=== PATIENT | male | born 1950 | race Caucasian/White ===

== ENCOUNTER 2016-12-29 16:53 | Inpatient (IN) | payer MEDICARE, OTHER ==
[~2016-12-29] VITALS: Ht 167.6 cm; Wt 74.8 kg
[2016-12-29] MEDS ORDERED: LOSA25TA21 PO (17:22)
[2016-12-29] MEDS ORDERED: ATOR10TA84 PO (17:22)
[2016-12-29] MEDS ORDERED: ASPI81 PO (17:22)
[2016-12-29 18:00] LABS: BASOPHILS % (AUTO) 0.9 % (0.0-2.0); EOSINOPHILS % (AUTO) 0.8 % (1.0-6.0); HEMATOCRIT 39.2 % (41-53); HEMOGLOBIN 13.2 g/dL (13.5-17.5); LYMPHOCYTES % (AUTO) 8.1 % (22.0-44.0); MEAN CORPUSCULAR HEMOGLOBIN 30.2 pg (26.0-34.0); MEAN CORPUSCULAR HGB CONC 33.7 G/dL (31.0-37.0); MEAN CORPUSCULAR VOLUME 90 fL (80-100); MONOCYTES # (AUTO) 1.5 K/uL (0.1-1.0); MONOCYTES % (AUTO) 11.6 % (2.0-9.0); NEUTROPHILS % (AUTO) 78.6 % (40.0-70.0); PLATELET COUNT (AUTO) 456 K/uL (150-450); RED BLOOD CELL COUNT(AUTO) 4.36 MIL/uL (4.50-5.90); WHITE BLOOD COUNT (AUTO) 12.7 K/uL (4.5-11.0)
[2016-12-29 18:12] LABS: ANION GAP 12 mmol/L (8-16); CALCIUM, TOTAL 8.5 mg/dL (8.8-10.5); CARBON DIOXIDE 21 mmol/L (22-29); CHLORIDE 93 mmol/L (98-107); CREATININE 0.87 mg/dL (0.60-1.30); GLOMERULAR FILTR. RATE CALC > 60 mL/min (>60); POTASSIUM 4.1 mmol/L (3.5-5.1); SODIUM SERUM 126 mmol/L (136-145); UREA NITROGEN, BLOOD 12 mg/dL (7-18)
[2016-12-29 18:20] LABS: ALANINE AMINOTRANSFERASE 17 U/L (12-78); ALBUMIN 2.9 g/dL (3.4-5.0); ASPARTATE AMINOTRANSFERASE 15 U/L (15-37); BILIRUBIN,TOTAL 0.7 mg/dL (0.1-1.0); TOTAL PROTEIN, SERUM 7.8 g/dL (6.4-8.2)
[2016-12-29] MEDS ORDERED: BARIUM SULFATE 0.1% SUSPENSION 450 ML BOTTLE PO ONE (19:15)
[2016-12-29] MEDS ORDERED: IOVERSOL 320 MG/ML 100 ML VIAL ONE (19:30)
[2016-12-29] MEDS ORDERED: SODIUM CHLORIDE 0.9% 100 ML ONE (19:30)
[2016-12-29] MEDS ORDERED: SODIUM CHLORIDE 0.9% 1,000 ML IV ONE (20:15)
[2016-12-29 22:00] LABS: APPEARANCE,URINE CLEAR (CLEAR); GLUCOSE, URINE (UA) NEGATIVE (NEGATIVE); KETONES,URINE 40 mg/dL (NEGATIVE); LEUKOCYTE ESTERASE ,URINE NEGATIVE (NEGATIVE); OCCULT BLOOD,URINE NEGATIVE (NEGATIVE); PH,URINE 5.5 (5.0-8.0); PROTEIN,URINE NEGATIVE (NEGATIVE)
[2016-12-29 22:19] LABS: ADD UA MICROSCOPIC NO
[2016-12-29] MEDS ORDERED: POTASSIUM CHL 20 MEQ/D5-0.45NS 1,000 ML IV ONE (23:15)
[2016-12-29] MEDS ORDERED: ACETAMINOPHEN 325 MG TABLET PO PRN (23:15)
[2016-12-29] MEDS ORDERED: 0.9% SODIUM CHLORIDE 10 ML SYRINGE IVP PRN (23:15)
[2016-12-29] MEDS ORDERED: ONDANSETRON HCL 4 MG/2 ML VIAL IVP PRN (23:15)
[2016-12-29] MEDS ORDERED: PIPERACILLIN/TAZO 3.375 GM/D5W 50 ML IV ONE (23:15)
[2016-12-29 23:45] VITALS: BP 150/81
[2016-12-30] VITALS (9 sets, daily range): BP systolic 111–187; BP diastolic 60–93
[2016-12-30] MEDS ORDERED: IPRATROPIUM BROMIDE 0.5 MG/2.5 ML NEB SOLUTION NEB PRN (00:15)
[2016-12-30] MEDS ORDERED: ZOLPIDEM TARTRATE 5 MG TABLET PO PRN (00:15)
[2016-12-30] MEDS ORDERED: ALBUTEROL SULFATE 2.5 MG/0.5 ML NEB SOLUTION NEB PRN (00:15)
[2016-12-30] MEDS ORDERED: ACETAMINOPHEN 325 MG TABLET PO PRN (00:15)
[2016-12-30] MEDS ORDERED: BISACODYL 10 MG RECTAL RECTAL SUPPOSITORY PR PRN (00:15)
[2016-12-30] MEDS ORDERED: ONDANSETRON HCL 4 MG/2 ML VIAL IVP PRN (00:15)
[2016-12-30] MEDS ORDERED: MAGNESIUM HYDROXIDE SUSPENSION 30 ML UDCUP PO PRN (00:15)
[2016-12-30] MEDS: DEXTROSE 5%-0.45% SODIUM CHL 1,000 ML IV SCH ×3 (01:02→20:07)
[2016-12-30] MEDS: PIPERACILLIN/TAZO 3.375 GM/D5W 50 ML IV SCH ×4 (05:13→23:16)
[2016-12-30 06:18] LABS: BASOPHILS % (AUTO) 0.2 % (0.0-2.0); EOSINOPHILS % (AUTO) 2.4 % (1.0-6.0); HEMATOCRIT 35.7 % (41-53); LYMPHOCYTES # (AUTO) 0.9 K/uL (1.0-4.8); LYMPHOCYTES % (AUTO) 8.4 % (22.0-44.0); MEAN CORPUSCULAR HEMOGLOBIN 30.8 pg (26.0-34.0); MEAN CORPUSCULAR HGB CONC 33.6 G/dL (31.0-37.0); MEAN CORPUSCULAR VOLUME 92 fL (80-100); MONOCYTES # (AUTO) 1.6 K/uL (0.1-1.0); MONOCYTES % (AUTO) 14.4 % (2.0-9.0); NEUTROPHILS # (AUTO) 8.2 K/uL (1.8-7.7); NEUTROPHILS % (AUTO) 74.6 % (40.0-70.0); PLATELET COUNT (AUTO) 420 K/uL (150-450)
[2016-12-30 06:54] LABS: ALANINE AMINOTRANSFERASE 13 U/L (12-78); ALBUMIN 2.3 g/dL (3.4-5.0); ANION GAP 7 mmol/L (8-16); ASPARTATE AMINOTRANSFERASE 10 U/L (15-37); BILIRUBIN,TOTAL 0.6 mg/dL (0.1-1.0); CARBON DIOXIDE 25 mmol/L (22-29); CHLORIDE 98 mmol/L (98-107); GLOMERULAR FILTR. RATE CALC > 60 mL/min (>60); SODIUM SERUM 130 mmol/L (136-145); TOTAL PROTEIN, SERUM 6.4 g/dL (6.4-8.2); UREA NITROGEN, BLOOD 5 mg/dL (7-18)
[2016-12-30] MEDS: LOSARTAN POTASSIUM 25 MG TABLET PO SCH (08:09)
[2016-12-30] MEDS ORDERED: HEPARIN SODIUM,PORCINE 5,000 UNITS/ML VIAL SQ SCH (09:00)
[2016-12-30] MEDS: PANTOPRAZOLE SODIUM 40 MG/VIAL IVP SCH (09:04)
[2016-12-30] MEDS: OxyCODONE HCL/ACETAMINOPHEN 5-325 MG TABLET PO PRN ×2 (11:49→20:09)
[2016-12-30] MEDS ORDERED: PEG 3350/NA SULF,BICARB,CL/KCL 4000 ML SOLUTION PO ONE (13:15)
[2016-12-30] MEDS: ATORVASTATIN CALCIUM 10 MG TABLET PO SCH (20:09)
[2016-12-31] VITALS (9 sets, daily range): BP systolic 132–177; BP diastolic 68–82
[2016-12-31 00:15] LABS: APPEARANCE,URINE CLEAR (CLEAR); GLUCOSE, URINE (UA) >=1000 mg/dL (NEGATIVE); KETONES,URINE NEGATIVE (NEGATIVE); LEUKOCYTE ESTERASE ,URINE NEGATIVE (NEGATIVE); OCCULT BLOOD,URINE NEGATIVE (NEGATIVE); PH,URINE 5.5 (5.0-8.0); PROTEIN,URINE NEGATIVE (NEGATIVE)
[2016-12-31 00:18] LABS: ADD UA MICROSCOPIC YES
[2016-12-31 01:09] LABS: RBC,URINE 0-2 /HPF (0-2); SQUAMOUS EPITHELIAL CELL,UR Rare /LPF (None Seen); WBC,URINE 0-2 /HPF (0-5)
[2016-12-31] MEDS: DEXTROSE 5%-0.45% SODIUM CHL 1,000 ML IV SCH ×2 (04:44→18:51)
[2016-12-31] MEDS: PIPERACILLIN/TAZO 3.375 GM/D5W 50 ML IV SCH ×4 (04:44→23:54)
[2016-12-31] MEDS: OxyCODONE HCL/ACETAMINOPHEN 5-325 MG TABLET PO PRN (04:45)
[2016-12-31 06:55] LABS: BASOPHILS % (AUTO) 0.4 % (0.0-2.0); EOSINOPHILS % (AUTO) 1.3 % (1.0-6.0); HEMATOCRIT 33.1 % (41-53); HEMOGLOBIN 11.3 g/dL (13.5-17.5); LYMPHOCYTES # (AUTO) 0.8 K/uL (1.0-4.8); LYMPHOCYTES % (AUTO) 7.3 % (22.0-44.0); MEAN CORPUSCULAR HEMOGLOBIN 30.9 pg (26.0-34.0); MEAN CORPUSCULAR HGB CONC 34.2 G/dL (31.0-37.0); MEAN CORPUSCULAR VOLUME 90 fL (80-100); MONOCYTES # (AUTO) 1.4 K/uL (0.1-1.0); MONOCYTES % (AUTO) 12.9 % (2.0-9.0); NEUTROPHILS # (AUTO) 8.7 K/uL (1.8-7.7); NEUTROPHILS % (AUTO) 78.1 % (40.0-70.0); PLATELET COUNT (AUTO) 414 K/uL (150-450); RED BLOOD CELL COUNT(AUTO) 3.66 MIL/uL (4.50-5.90); WHITE BLOOD COUNT (AUTO) 11.2 K/uL (4.5-11.0)
[2016-12-31 07:24] LABS: ANION GAP 8 mmol/L (8-16); CALCIUM, TOTAL 7.8 mg/dL (8.8-10.5); CARBON DIOXIDE 26 mmol/L (22-29); CHLORIDE 99 mmol/L (98-107); CHOL/HDL RATIO 2.6 (4.2-7.3); CREATININE 0.75 mg/dL (0.60-1.30); GLOMERULAR FILTR. RATE CALC > 60 mL/min (>60); PHOSPHORUS 2.5 mg/dL (2.5-4.9); POTASSIUM 3.4 mmol/L (3.5-5.1); SODIUM SERUM 133 mmol/L (136-145); THYROID STIMULATING HORMONE 3.17 uIU/mL (0.36-3.74); UREA NITROGEN, BLOOD 4 mg/dL (7-18)
[2016-12-31] MEDS ORDERED: SODIUM CHLORIDE 0.9% 1,000 ML IV ONE ×2 (07:56→09:30)
[2016-12-31] MEDS ORDERED: MIDAZOLAM HCL 5 MG/ML VIAL ONE ×2 (08:14→08:15)
[2016-12-31] MEDS ORDERED: FentaNYL CITRATE-PF 100 MCG/2 ML VIAL ONE (08:15)
[2016-12-31] MEDS: PANTOPRAZOLE SODIUM 40 MG/VIAL IVP SCH (09:57)
[2016-12-31] MEDS: LOSARTAN POTASSIUM 25 MG TABLET PO SCH (09:58)
[2016-12-31] MEDS: MORPHINE SULFATE 4 MG/ML SYRINGE IVP PRN (15:16)
[2016-12-31] MEDS: ATORVASTATIN CALCIUM 10 MG TABLET PO SCH (20:16)
[2017-01-01] MEDS: CloNIDine HCL 0.1 MG TABLET PO PRN (00:01)
[2017-01-01 03:10] VITALS: BP 145/71
[2017-01-01] MEDS: PIPERACILLIN/TAZO 3.375 GM/D5W 50 ML IV SCH ×3 (05:17→20:56)
[2017-01-01] MEDS: DEXTROSE 5%-0.45% SODIUM CHL 1,000 ML IV SCH (05:54)
[2017-01-01 07:39] VITALS: BP 153/78
[2017-01-01] MEDS: PANTOPRAZOLE SODIUM 40 MG/VIAL IVP SCH (09:11)
[2017-01-01] MEDS: LOSARTAN POTASSIUM 25 MG TABLET PO SCH (09:11)
[2017-01-01 10:28] LABS: ANION GAP 5 mmol/L (8-16); CALCIUM, TOTAL 8.4 mg/dL (8.8-10.5); CARBON DIOXIDE 29 mmol/L (22-29); CHLORIDE 98 mmol/L (98-107); CREATININE 0.73 mg/dL (0.60-1.30); GLOMERULAR FILTR. RATE CALC > 60 mL/min (>60); POTASSIUM 3.8 mmol/L (3.5-5.1); SODIUM SERUM 132 mmol/L (136-145); UREA NITROGEN, BLOOD 1 mg/dL (7-18)
[2017-01-01 10:39] LABS: INR 1.1 (0.9-1.1); PROTHROMBIN TIME 11.5 SEC (9.4-11.6)
[2017-01-01] MEDS ORDERED: RINGERS SOLUTION,LACTATED 1,000 ML IV ONE ×3 (10:44→15:38)
[2017-01-01] MEDS ORDERED: POTASSIUM CHLORIDE 20 MEQ ER TABLET PO PRN (10:45)
[2017-01-01] MEDS ORDERED: MAGNESIUM SULFATE 4 GM/WATER 100 ML IV PRN (10:45)
[2017-01-01] MEDS ORDERED: POTASSIUM CHL 10 MEQ/WATER 50 ML IV PRN (10:45)
[2017-01-01 12:00] LABS: ALBUMIN 2.4 g/dL (3.4-5.0)
[2017-01-01] MEDS ORDERED: ROCURONIUM BROMIDE 10 MG/ML 5 ML VIAL ONE (15:38)
[2017-01-01] MEDS ORDERED: BUPIVACAINE LIPOSOME/PF 1.3%-13.3MG/ML SUSPENSION 20 ML VIAL INJ ONE (16:00)
[2017-01-01] MEDS ORDERED: DEXAMETHASONE SOD PHOS 4 MG/ML VIAL ONE (16:00)
[2017-01-01] MEDS ORDERED: BUPIVACAINE HCL/PF 0.5% 30 ML VIAL ONE (16:00)
[2017-01-01] MEDS ORDERED: HYDROmorphone 2 MG/ML SYRINGE IVP PRN (16:45)
[2017-01-01] MEDS ORDERED: MEPERIDINE-PF 25 MG/ML SYRINGE IVP PRN (16:45)
[2017-01-01] MEDS ORDERED: FentaNYL CITRATE-PF 100 MCG/2 ML VIAL IVP PRN (16:45)
[2017-01-01] MEDS: HYDROmorphone 2 MG/ML SYRINGE IVP PRN ×3 (18:18→18:37)
[2017-01-01] MEDS ORDERED: HYDROmorphone 2 MG/ML SYRINGE ONE (18:19)
[2017-01-01] MEDS ORDERED: ACETAMINOPHEN 1000 MG/ISO-OSM 100 ML IV ONE (18:31)
[2017-01-01] MEDS ORDERED: MEPERIDINE-PF 25 MG/ML SYRINGE ONE (18:32)
[2017-01-01] MEDS: ACETAMINOPHEN 1000 MG/ISO-OSM 100 ML IV SCH (18:35)
[2017-01-01 19:53] VITALS: BP 146/78
[2017-01-01] MEDS ORDERED: OXYGEN THERAPY IH SCH (20:00)
[2017-01-01] MEDS: CYCLOBENZAPRINE HCL 10 MG TABLET PO SCH (20:44)
[2017-01-01] MEDS: ATORVASTATIN CALCIUM 10 MG TABLET PO SCH (20:44)
[2017-01-01] MEDS: MORPHINE SULFATE 4 MG/ML SYRINGE IVP PRN (20:49)
[2017-01-01] MEDS: OXYGEN THERAPY IH SCH (20:57)
[2017-01-01] MEDS: MAGNESIUM OXIDE 400 MG TABLET PO PRN (21:08)
[2017-01-01 23:45] VITALS: BP 142/81
[2017-01-02] MEDS: OxyCODONE HCL/ACETAMINOPHEN 5-325 MG TABLET PO PRN ×2 (00:06→09:01)
[2017-01-02] MEDS: PIPERACILLIN/TAZO 3.375 GM/D5W 50 ML IV SCH ×5 (00:22→22:41)
[2017-01-02] MEDS: ACETAMINOPHEN 1000 MG/ISO-OSM 100 ML IV SCH ×3 (01:26→18:35)
[2017-01-02] MEDS ORDERED: LIDOCAINE HCL/PF 2% 5 ML VIAL IM ONE (01:34)
[2017-01-02] MEDS ORDERED: ROCURONIUM BROMIDE 10 MG/ML 5 ML VIAL IVP ONE (01:34)
[2017-01-02] MEDS ORDERED: DEXAMETHASONE SOD PHOS 4 MG/ML VIAL IVP ONE (01:34)
[2017-01-02] MEDS ORDERED: ONDANSETRON HCL 4 MG/2 ML VIAL IVP ONE (01:34)
[2017-01-02] MEDS ORDERED: GLYCOPYRROLATE 0.2 MG/ML VIAL IM ONE (01:34)
[2017-01-02] MEDS ORDERED: KETOROLAC TROMETHAMINE 60 MG/2 ML VIAL IM ONE (01:34)
[2017-01-02] MEDS ORDERED: PROPOFOL 1% 20 ML VIAL IVP ONE (01:34)
[2017-01-02] MEDS: MORPHINE SULFATE 4 MG/ML SYRINGE IVP PRN ×2 (02:57→16:23)
[2017-01-02 04:32] VITALS: BP 123/65
[2017-01-02] MEDS ORDERED: MIDAZOLAM HCL 2 MG/2 ML VIAL IVP ONE (05:03)
[2017-01-02] MEDS ORDERED: FentaNYL CITRATE-PF 100 MCG/2 ML VIAL IVP ONE (05:03)
[2017-01-02 06:36] LABS: ANION GAP 10 mmol/L (8-16); CALCIUM, TOTAL 8.1 mg/dL (8.8-10.5); CARBON DIOXIDE 25 mmol/L (22-29); CHLORIDE 99 mmol/L (98-107); CREATININE 0.78 mg/dL (0.60-1.30); GLOMERULAR FILTR. RATE CALC > 60 mL/min (>60); POTASSIUM 3.6 mmol/L (3.5-5.1); SODIUM SERUM 134 mmol/L (136-145); UREA NITROGEN, BLOOD 3 mg/dL (7-18)
[2017-01-02 06:47] LABS: HEMATOCRIT 36.5 % (41-53); HEMOGLOBIN 12.3 g/dL (13.5-17.5); MEAN CORPUSCULAR HEMOGLOBIN 30.5 pg (26.0-34.0); MEAN CORPUSCULAR HGB CONC 33.6 G/dL (31.0-37.0); MEAN CORPUSCULAR VOLUME 91 fL (80-100); PLATELET COUNT (AUTO) 496 K/uL (150-450); RED BLOOD CELL COUNT(AUTO) 4.02 MIL/uL (4.50-5.90); RED CELL DISTRIBUTION WIDTH 12.7 % (11.5-14.5); WHITE BLOOD COUNT (AUTO) 13.8 K/uL (4.5-11.0)
[2017-01-02 07:36] VITALS: BP 135/71
[2017-01-02] MEDS: OXYGEN THERAPY IH SCH ×2 (08:00→20:00)
[2017-01-02 08:22] LABS: BAND NEUTROPHILS % (MANUAL) 18 % (1-5); LYMPHOCYTES % (MANUAL) 6 % (22-44); RBC MORPHOLOGY COMMENT NORMAL RBC MORPH; TOTAL CELLS COUNTED 100
[2017-01-02] MEDS: PANTOPRAZOLE SODIUM 40 MG/VIAL IVP SCH (09:00)
[2017-01-02] MEDS: LOSARTAN POTASSIUM 25 MG TABLET PO SCH (09:02)
[2017-01-02] MEDS: CYCLOBENZAPRINE HCL 10 MG TABLET PO SCH ×3 (09:02→20:58)
[2017-01-02] MEDS: MAGNESIUM SULFATE 2 GM in DEXTROSE 5%-WATER 50 ML IV PRN (10:25)
[2017-01-02 11:27] VITALS: BP 149/75
[2017-01-02 15:47] VITALS: BP 136/71
[2017-01-02] MEDS: DEXTROSE 5%-0.45% SODIUM CHL 1,000 ML IV SCH (18:35)
[2017-01-02 19:38] VITALS: BP 139/71
[2017-01-02] MEDS: ATORVASTATIN CALCIUM 10 MG TABLET PO SCH (20:58)
[2017-01-02 23:38] VITALS: BP 112/56
[2017-01-03] MEDS: MORPHINE SULFATE 4 MG/ML SYRINGE IVP PRN (01:33)
[2017-01-03] MEDS: PIPERACILLIN/TAZO 3.375 GM/D5W 50 ML IV SCH ×3 (04:46→17:43)
[2017-01-03] MEDS: DEXTROSE 5%-0.45% SODIUM CHL 1,000 ML IV SCH ×2 (04:46→18:14)
[2017-01-03 04:59] VITALS: BP 160/90
[2017-01-03] MEDS: OXYGEN THERAPY IH SCH (08:00)
[2017-01-03] MEDS: PANTOPRAZOLE SODIUM 40 MG/VIAL IVP SCH (08:46)
[2017-01-03] MEDS: LOSARTAN POTASSIUM 25 MG TABLET PO SCH (08:47)
[2017-01-03] MEDS: CYCLOBENZAPRINE HCL 10 MG TABLET PO SCH ×2 (08:47→15:54)
[2017-01-03 11:47] VITALS: BP 150/75
[2017-01-03 15:48] VITALS: BP 158/83
[2017-01-03 20:23] VITALS: BP 164/84
[2017-01-04] VITALS (7 sets, daily range): BP systolic 149–167; BP diastolic 71–92
[2017-01-04] MEDS: ATORVASTATIN CALCIUM 10 MG TABLET PO SCH ×2 (00:29→20:27)
[2017-01-04] MEDS: PIPERACILLIN/TAZO 3.375 GM/D5W 50 ML IV SCH ×4 (00:29→16:07)
[2017-01-04] MEDS: CYCLOBENZAPRINE HCL 10 MG TABLET PO SCH ×4 (00:31→20:27)
[2017-01-04] MEDS: DEXTROSE 5%-0.45% SODIUM CHL 1,000 ML IV SCH ×4 (06:21→23:00)
[2017-01-04 06:28] LABS: BASOPHILS % (AUTO) 0.3 % (0.0-2.0); EOSINOPHILS % (AUTO) 1.8 % (1.0-6.0); HEMOGLOBIN 11.1 g/dL (13.5-17.5); LYMPHOCYTES # (AUTO) 0.8 K/uL (1.0-4.8); LYMPHOCYTES % (AUTO) 9.2 % (22.0-44.0); MEAN CORPUSCULAR HEMOGLOBIN 30.6 pg (26.0-34.0); MEAN CORPUSCULAR HGB CONC 33.7 G/dL (31.0-37.0); MEAN CORPUSCULAR VOLUME 91 fL (80-100); MONOCYTES # (AUTO) 0.9 K/uL (0.1-1.0); MONOCYTES % (AUTO) 10.4 % (2.0-9.0); NEUTROPHILS # (AUTO) 6.5 K/uL (1.8-7.7); NEUTROPHILS % (AUTO) 78.3 % (40.0-70.0); PLATELET COUNT (AUTO) 546 K/uL (150-450); RED BLOOD CELL COUNT(AUTO) 3.64 MIL/uL (4.50-5.90); RED CELL DISTRIBUTION WIDTH 12.7 % (11.5-14.5); WHITE BLOOD COUNT (AUTO) 8.3 K/uL (4.5-11.0)
[2017-01-04 06:45] LABS: ALANINE AMINOTRANSFERASE 8 U/L (12-78); ALBUMIN 1.9 g/dL (3.4-5.0); ANION GAP 7 mmol/L (8-16); ASPARTATE AMINOTRANSFERASE 8 U/L (15-37); BILIRUBIN,TOTAL 0.3 mg/dL (0.1-1.0); CALCIUM, TOTAL 7.8 mg/dL (8.8-10.5); CARBON DIOXIDE 28 mmol/L (22-29); CHLORIDE 100 mmol/L (98-107); CREATININE 0.57 mg/dL (0.60-1.30); GLOMERULAR FILTR. RATE CALC > 60 mL/min (>60); SODIUM SERUM 135 mmol/L (136-145); TOTAL PROTEIN, SERUM 5.8 g/dL (6.4-8.2); UREA NITROGEN, BLOOD 2 mg/dL (7-18)
[2017-01-04] MEDS: OXYGEN THERAPY IH SCH ×2 (08:00→20:32)
[2017-01-04] MEDS: MORPHINE SULFATE 4 MG/ML SYRINGE IVP PRN (09:18)
[2017-01-04] MEDS: PANTOPRAZOLE SODIUM 40 MG/VIAL IVP SCH (09:21)
[2017-01-04] MEDS: LOSARTAN POTASSIUM 25 MG TABLET PO SCH (09:22)
[2017-01-04] MEDS: MAGNESIUM OXIDE 400 MG TABLET PO PRN ×2 (11:56→21:18)
[2017-01-05] MEDS: PIPERACILLIN/TAZO 3.375 GM/D5W 50 ML IV SCH ×5 (00:22→22:16)
[2017-01-05 01:37] LABS: GLUCOSE COMMENT 1 Received Meds; GLUCOSE,POINT OF CARE 127 MG/DL (70-110)
[2017-01-05] MEDS: MAGNESIUM OXIDE 400 MG TABLET PO PRN (02:33)
[2017-01-05 04:38] VITALS: BP 155/88
[2017-01-05 07:26] VITALS: BP 154/80
[2017-01-05] MEDS: PANTOPRAZOLE SODIUM 40 MG/VIAL IVP SCH (07:57)
[2017-01-05] MEDS: OxyCODONE HCL/ACETAMINOPHEN 5-325 MG TABLET PO PRN (07:58)
[2017-01-05] MEDS: CYCLOBENZAPRINE HCL 10 MG TABLET PO SCH ×3 (07:58→20:05)
[2017-01-05] MEDS: LOSARTAN POTASSIUM 25 MG TABLET PO SCH (07:58)
[2017-01-05] MEDS: OXYGEN THERAPY IH SCH ×2 (08:00→20:00)
[2017-01-05] MEDS: DEXTROSE 5%-0.45% SODIUM CHL 1,000 ML IV SCH ×2 (09:16→22:19)
[2017-01-05 11:26] VITALS: BP 158/82
[2017-01-05] MEDS: MAGNESIUM SULFATE 2 GM in DEXTROSE 5%-WATER 50 ML IV PRN (12:20)
[2017-01-05 16:30] VITALS: BP 157/83
[2017-01-05 19:55] VITALS: BP 173/95
[2017-01-05] MEDS: CloNIDine HCL 0.1 MG TABLET PO PRN (20:04)
[2017-01-05] MEDS: ATORVASTATIN CALCIUM 10 MG TABLET PO SCH (20:05)
[2017-01-06 00:32] VITALS: BP 142/77
[2017-01-06 05:09] VITALS: BP 157/79
[2017-01-06] MEDS: PIPERACILLIN/TAZO 3.375 GM/D5W 50 ML IV SCH ×2 (05:40→12:18)
[2017-01-06 05:56] LABS: BASOPHILS % (AUTO) 0.2 % (0.0-2.0); EOSINOPHILS % (AUTO) 5.2 % (1.0-6.0); HEMOGLOBIN 11.1 g/dL (13.5-17.5); LYMPHOCYTES # (AUTO) 0.9 K/uL (1.0-4.8); MEAN CORPUSCULAR HEMOGLOBIN 30.5 pg (26.0-34.0); MEAN CORPUSCULAR HGB CONC 33.6 G/dL (31.0-37.0); MEAN CORPUSCULAR VOLUME 91 fL (80-100); MONOCYTES % (AUTO) 12.1 % (2.0-9.0); NEUTROPHILS # (AUTO) 5.7 K/uL (1.8-7.7); NEUTROPHILS % (AUTO) 71.5 % (40.0-70.0); PLATELET COUNT (AUTO) 545 K/uL (150-450); RED BLOOD CELL COUNT(AUTO) 3.64 MIL/uL (4.50-5.90); RED CELL DISTRIBUTION WIDTH 12.8 % (11.5-14.5); WHITE BLOOD COUNT (AUTO) 7.9 K/uL (4.5-11.0)
[2017-01-06 06:59] LABS: ALANINE AMINOTRANSFERASE 10 U/L (12-78); ANION GAP 7 mmol/L (8-16); ASPARTATE AMINOTRANSFERASE 11 U/L (15-37); BILIRUBIN,TOTAL 0.3 mg/dL (0.1-1.0); CALCIUM, TOTAL 7.8 mg/dL (8.8-10.5); CARBON DIOXIDE 25 mmol/L (22-29); CHLORIDE 98 mmol/L (98-107); CREATININE 0.68 mg/dL (0.60-1.30); GLOMERULAR FILTR. RATE CALC > 60 mL/min (>60); POTASSIUM 3.5 mmol/L (3.5-5.1); SODIUM SERUM 130 mmol/L (136-145); TOTAL PROTEIN, SERUM 5.8 g/dL (6.4-8.2); UREA NITROGEN, BLOOD 1 mg/dL (7-18)
[2017-01-06 07:41] VITALS: BP 145/80
[2017-01-06] MEDS: OXYGEN THERAPY IH SCH (08:00)
[2017-01-06] MEDS: CYCLOBENZAPRINE HCL 10 MG TABLET PO SCH (09:43)
[2017-01-06] MEDS: LOSARTAN POTASSIUM 25 MG TABLET PO SCH (09:43)
[2017-01-06] MEDS: PANTOPRAZOLE SODIUM 40 MG/VIAL IVP SCH (09:43)
[2017-01-06] MEDS: OxyCODONE HCL/ACETAMINOPHEN 5-325 MG TABLET PO PRN (09:47)
[2017-01-06] MEDS ORDERED: HYDR-309 PO (15:39)
[2017-01-06] MEDS ORDERED: DSSL PO (15:40)
[2017-01-06] MEDS ORDERED: DOCU100C33 PO (15:41)
[2017-01-06] MEDS ORDERED: OMEP10SU PO (15:42)
[2017-01-06 16:08] VITALS: BP 158/75
== END 2017-01-06 17:25 | disposition home or self-care (01) | DRG 330 ==
LOC: EMS 16:57 → 4E 23:31 → 6N 01-03 18:19
PROVIDERS: ADMIT Internal Medicine; ATTEND Internal Medicine
PROC: 0DBM8ZX Excision of Descending Colon, Via Natural or Artificial Opening Endoscopic, Diagnostic (ICD-10-PCS; 2016-12-31)
PROC: 0WQF0ZZ Repair Abdominal Wall, Open Approach (ICD-10-PCS; 2017-01-01)
PROC: 0DBM0ZZ Excision of Descending Colon, Open Approach (ICD-10-PCS; principal; 2017-01-01 12:30)
DX: C18.6 Malignant neoplasm of descending colon (principal); E87.1 Hypo-osmolality and hyponatremia; E44.0 Moderate protein-calorie malnutrition; E83.42 Hypomagnesemia; E86.0 Dehydration; I10 Essential (primary) hypertension; E78.5 Hyperlipidemia, unspecified; K59.00 Constipation, unspecified; E78.00 Pure hypercholesterolemia, unspecified; K42.9 Umbilical hernia without obstruction or gangrene; D64.9 Anemia, unspecified; Z79.82 Long term (current) use of aspirin
CPT/HCPCS: 74177; 82306; 82378; 82962; 83735; 84100; 84132; 84443; 87040; 87081; 88305; 88309; 93005; 96361; 96374; 99285; C9113; C9290; J0131; J1100; J1170; J1644; J1885; J2175; J2250; J2270; J2405; J2543; J2704; J3010; J3475; J3490; J7030; J7050; J7060; J7120

== ENCOUNTER 2024-06-30 19:27 | Inpatient (IN) | payer MEDICARE, OTHER ==
[~2024-06-30] VITALS: Ht 165.1 cm; Wt 76.5 kg
[~2024-06-30 19:27] MED LIST: ACET-3862 PO; ASPI-1444 PO; ATOR10TA PO; Bisacodyl PR; DIPH-1243 PO; DOCU-385 PO; DOXY100C5 PO; HYDR-4061 PO; HYDR25TA PO; LOSA-381 PO; MAGN-169 PO; METO-408 PO; OMEP10SU2 PO
[2024-06-30 20:34] LABS: BASOPHILS % (AUTO) 0.4 % (0.0-2.0); EOSINOPHILS % (AUTO) 4.7 % (1.0-6.0); HEMATOCRIT 32.5 % (41-53); HEMOGLOBIN 11.2 g/dL (13.5-17.5); LYMPHOCYTES # (AUTO) 1.1 K/uL (1.0-4.8); LYMPHOCYTES % (AUTO) 14.4 % (22.0-44.0); MEAN CORPUSCULAR HGB CONC 34.5 G/dL (31.0-37.0); MEAN CORPUSCULAR VOLUME 87 fL (80-100); MONOCYTES # (AUTO) 1.2 K/uL (0.1-1.0); MONOCYTES % (AUTO) 16.7 % (2.0-9.0); NEUTROPHILS # (AUTO) 4.8 K/uL (1.8-7.7); NEUTROPHILS % (AUTO) 63.8 % (40.0-70.0); PLATELET COUNT (AUTO) 350 K/uL (150-450); RED BLOOD CELL COUNT(AUTO) 3.73 MIL/uL (4.50-5.90); RED CELL DISTRIBUTION WIDTH 13.9 % (11.5-14.5); WHITE BLOOD COUNT (AUTO) 7.5 K/uL (4.5-11.0)
[2024-06-30 20:46] LABS: ANION GAP 11 mmol/L (8-16); CARBON DIOXIDE 25 mmol/L (22-29); CHLORIDE 89 mmol/L (98-107); CREATININE 0.53 mg/dL (0.60-1.30); GLOMERULAR FILTR. RATE CALC > 60 mL/min (>60); GLUCOSE,RANDOM 114 mg/dL (70-110); POTASSIUM 4.4 mmol/L (3.5-5.1); SODIUM SERUM 125 mmol/L (136-145); UREA NITROGEN, BLOOD 10 mg/dL (7-18)
[2024-06-30 20:50] LABS: ALBUMIN 3.2 g/dL (3.4-5.0); BILIRUBIN,DIRECT 0.2 mg/dL (0.00-0.20); BILIRUBIN,TOTAL 0.6 mg/dL (0.1-1.0); TOTAL PROTEIN, SERUM 7.6 g/dL (6.4-8.2)
[2024-07-01] MEDS ORDERED: 0.9% SODIUM CHLORIDE 10 ML SYRINGE IVP PRN (00:45)
[2024-07-01] MEDS: SODIUM CHLORIDE 0.9% 2,050 ML IV ONE (01:03)
[2024-07-01] MEDS: CefTRIAXone 1 GM/DEXTROSE 50 ML IV ONE (01:03)
[2024-07-01 01:27] LABS: LACTIC ACID 1.1 mmol/L (0.4-2.0)
[2024-07-01] MEDS: TraMADol HCL 50 MG TABLET PO ONE (01:31)
[2024-07-01] MEDS: MORPHINE SULFATE 2 MG/ML SYRINGE IVP ONE (06:41)
[2024-07-01] MEDS ORDERED: ACETAMINOPHEN 325 MG TABLET PO PRN (09:00)
[2024-07-01] MEDS ORDERED: ONDANSETRON HCL 4 MG/2 ML VIAL IVP PRN (09:00)
[2024-07-01] MEDS ORDERED: DiphenhydrAMINE HCL 25 MG CAPSULE PO PRN (09:00)
[2024-07-01] MEDS: LOSARTAN POTASSIUM 25 MG TABLET PO SCH (09:49)
[2024-07-01] MEDS: ASPIRIN 81 MG DR TABLET PO SCH (09:49)
[2024-07-01] MEDS: DOCUSATE SODIUM 100 MG CAPSULE PO SCH (09:49)
[2024-07-01] MEDS: SODIUM CHLORIDE 0.9% 1,000 ML IV SCH (09:49)
[2024-07-01] MEDS: PANTOPRAZOLE SODIUM 40 MG DR TABLET PO SCH (09:50)
[2024-07-01] MEDS: HYDROCHLOROTHIAZIDE 25 MG TABLET PO SCH (09:50)
[2024-07-01] MEDS: ENOXAPARIN SODIUM 40 MG/0.4 ML PF SYRINGE SQ SCH (09:51)
[2024-07-01] MEDS: METOPROLOL SUCCINATE 25 MG ER TABLET PO SCH (09:51)
[2024-07-01] MEDS: CefTRIAXone 1 GM/DEXTROSE 50 ML IV SCH (15:11)
[2024-07-01 16:06] VITALS: BP 131/62; PULSE 75; RESP 18; TEMP 97.6; O2SAT 100
[2024-07-01 19:34] VITALS: BP 125/56; PULSE 83; RESP 20; TEMP 97.6; O2SAT 100
[2024-07-01 20:15] VITALS: BP 132/58; PULSE 78; RESP 18; TEMP 97.9; O2SAT 99
[2024-07-01] MEDS: ATORVASTATIN CALCIUM 10 MG TABLET PO SCH (20:24)
[2024-07-01 20:45] VITALS: BP 128/62; PULSE 77; RESP 17; TEMP 97.8; O2SAT 97
[2024-07-01] MEDS: ACETAMINOPHEN 325 MG TABLET PO PRN (21:46)
[2024-07-02] MEDS ORDERED: NITROGLYCERIN 0.4 MG SUBLINGUAL TABLET #25 SL PRN
[2024-07-02 00:26] VITALS: BP 119/56; PULSE 78; RESP 16; TEMP 98.4; O2SAT 96
[2024-07-02 04:39] VITALS: BP 116/52; PULSE 78; RESP 15; TEMP 97.9; O2SAT 97
[2024-07-02 07:30] LABS: BASOPHILS % (AUTO) 0.4 % (0.0-2.0); EOSINOPHILS % (AUTO) 4.7 % (1.0-6.0); HEMATOCRIT 28.5 % (41-53); HEMOGLOBIN 9.9 g/dL (13.5-17.5); MEAN CORPUSCULAR HEMOGLOBIN 30.5 pg (26.0-34.0); MEAN CORPUSCULAR HGB CONC 34.9 G/dL (31.0-37.0); MEAN CORPUSCULAR VOLUME 87 fL (80-100); MONOCYTES # (AUTO) 1.3 K/uL (0.1-1.0); MONOCYTES % (AUTO) 18.8 % (2.0-9.0); NEUTROPHILS # (AUTO) 4.4 K/uL (1.8-7.7); NEUTROPHILS % (AUTO) 62.1 % (40.0-70.0); PLATELET COUNT (AUTO) 287 K/uL (150-450); RED BLOOD CELL COUNT(AUTO) 3.26 MIL/uL (4.50-5.90); RED CELL DISTRIBUTION WIDTH 13.8 % (11.5-14.5); WHITE BLOOD COUNT (AUTO) 7.1 K/uL (4.5-11.0)
[2024-07-02 07:36] LABS: ALANINE AMINOTRANSFERASE 15 U/L (12-78); ALBUMIN 2.5 g/dL (3.4-5.0); ALKALINE PHOSPHATASE 85 U/L (46-116); ANION GAP 10 mmol/L (8-16); ASPARTATE AMINOTRANSFERASE 15 U/L (15-37); BILIRUBIN,TOTAL 0.8 mg/dL (0.1-1.0); CARBON DIOXIDE 23 mmol/L (22-29); CHLORIDE 94 mmol/L (98-107); CHOL/HDL RATIO 1.7 (4.2-7.3); CHOLESTEROL 105 mg/dL (131-200); CREATININE 0.49 mg/dL (0.60-1.30); GLOMERULAR FILTR. RATE CALC > 60 mL/min (>60); GLUCOSE,RANDOM 86 mg/dL (70-110); HDL CHOLESTEROL 62 mg/dL (40-60); LDL CHOL (CALC.) 37 mg/dL (0-130); POTASSIUM 3.4 mmol/L (3.5-5.1); SODIUM SERUM 127 mmol/L (136-145); TOTAL PROTEIN, SERUM 6.3 g/dL (6.4-8.2); TRIGLYCERIDES 29 mg/dL (15-150); UREA NITROGEN, BLOOD 9 mg/dL (7-18)
[2024-07-02 07:55] LABS: TROPONIN I-HIGH SENSITIVITY 10 ng/L (<76)
[2024-07-02] MEDS: HYDROCODONE/ACETAMINOPHEN 5-325 MG TABLET PO PRN (08:41)
[2024-07-02 08:44] VITALS: BP 117/52; PULSE 76; RESP 17; TEMP 98.6; O2SAT 98
[2024-07-02] MEDS ORDERED: MAGNESIUM SULFATE 4 GM/WATER 100 ML IV PRN (11:00)
[2024-07-02] MEDS ORDERED: POTASSIUM CHL 10 MEQ/WATER 50 ML IV PRN (11:00)
[2024-07-02 11:31] LABS: ALBUMIN 2.6 g/dL (3.4-5.0)
[2024-07-02] MEDS: POTASSIUM CHLORIDE 20 MEQ ER TABLET PO PRN (11:56)
[2024-07-02 12:00] VITALS: BP 112/55; PULSE 71; RESP 16; TEMP 97.7; O2SAT 98
[2024-07-02] MEDS: MAGNESIUM OXIDE 400 MG TABLET PO PRN (12:06)
[2024-07-02 16:00] VITALS: BP 138/70; PULSE 74; RESP 17; TEMP 97.7; O2SAT 97
[2024-07-02 20:15] VITALS: BP 122/52; PULSE 78; RESP 19; TEMP 98.1; O2SAT 96
[2024-07-03 01:54] VITALS: BP 136/58; PULSE 71; RESP 18; TEMP 98; O2SAT 100
[2024-07-03 04:20] VITALS: BP 134/57; PULSE 75; RESP 18; TEMP 97.9; O2SAT 99
[2024-07-03 07:11] VITALS: BP 133/57; PULSE 79; RESP 19; TEMP 98.6; O2SAT 99
[2024-07-03 10:57] VITALS: BP 142/62; PULSE 74; RESP 19; TEMP 97.7; O2SAT 99
[2024-07-03] MEDS ORDERED: SODIUM CHLORIDE 0.9% 500 ML IV ONE (14:56)
[2024-07-03 18:34] LABS: TROPONIN I-HIGH SENSITIVITY 9 ng/L (<76)
[2024-07-03 20:04] VITALS: BP 124/58; PULSE 77; RESP 16; TEMP 98; O2SAT 100
[2024-07-03 23:27] VITALS: BP 122/58; PULSE 80; RESP 16; TEMP 98.1; O2SAT 96
[2024-07-04 03:31] VITALS: BP 131/59; PULSE 71; RESP 17; TEMP 97.7; O2SAT 97
[2024-07-04 08:03] VITALS: BP 130/62; PULSE 75; RESP 18; TEMP 98; O2SAT 98
[2024-07-04 09:09] LABS: BASOPHILS % (AUTO) 0.5 % (0.0-2.0); EOSINOPHILS % (AUTO) 4.8 % (1.0-6.0); HEMATOCRIT 32.2 % (41-53); HEMOGLOBIN 10.9 g/dL (13.5-17.5); LYMPHOCYTES % (AUTO) 11.3 % (22.0-44.0); MEAN CORPUSCULAR HEMOGLOBIN 29.9 pg (26.0-34.0); MEAN CORPUSCULAR VOLUME 88 fL (80-100); MONOCYTES # (AUTO) 1.3 K/uL (0.1-1.0); MONOCYTES % (AUTO) 15.4 % (2.0-9.0); NEUTROPHILS # (AUTO) 5.8 K/uL (1.8-7.7); PLATELET COUNT (AUTO) 321 K/uL (150-450); RED BLOOD CELL COUNT(AUTO) 3.66 MIL/uL (4.50-5.90); RED CELL DISTRIBUTION WIDTH 13.8 % (11.5-14.5); WHITE BLOOD COUNT (AUTO) 8.5 K/uL (4.5-11.0)
[2024-07-04 09:30] LABS: ANION GAP 9 mmol/L (8-16); CALCIUM, TOTAL 8.5 mg/dL (8.8-10.5); CARBON DIOXIDE 29 mmol/L (22-29); CHLORIDE 89 mmol/L (98-107); CREATININE 0.55 mg/dL (0.60-1.30); GLOMERULAR FILTR. RATE CALC > 60 mL/min (>60); GLUCOSE,RANDOM 121 mg/dL (70-110); POTASSIUM 4.5 mmol/L (3.5-5.1); SODIUM SERUM 127 mmol/L (136-145); UREA NITROGEN, BLOOD 7 mg/dL (7-18)
[2024-07-04] MEDS ORDERED: SESTAMIBI TC99M/UD ISOTOPE 1 EA INJ INJ ONE ×2 (10:10→13:05)
[2024-07-04] MEDS ORDERED: REGADENOSON 0.4 MG/5 ML PF SYRINGE IVP ONE (12:00)
[2024-07-04 12:06] VITALS: BP 120/64; PULSE 80; RESP 17; TEMP 98.1; O2SAT 99
[2024-07-04] MEDS: MORPHINE SULFATE 2 MG/ML SYRINGE IVP ONE (12:26)
[2024-07-04] MEDS: REGADENOSON 0.4 MG/5 ML PF SYRINGE IVP ONE (14:46)
[2024-07-04] MEDS ORDERED: SODIUM CHLORIDE 0.9% 1,000 ML ONE (15:22)
[2024-07-04 16:52] VITALS: BP 127/58; PULSE 84; RESP 18; TEMP 98.1; O2SAT 99
[2024-07-04] MEDS: MAGNESIUM SULFATE 2 GM/WATER 50 ML IV PRN (17:39)
[2024-07-04 20:00] VITALS: BP 118/58; PULSE 90; RESP 18; TEMP 98.5; O2SAT 99
[2024-07-04] MEDS: VANCOMYCIN 1.75GM/WATER(PEG) 350 ML IV ONE (20:07)
[2024-07-05 01:30] VITALS: BP 118/59; PULSE 81; RESP 18; TEMP 97.8; O2SAT 95
[2024-07-05 04:00] VITALS: BP 123/62; PULSE 77; RESP 17; TEMP 98; O2SAT 95
[2024-07-05 07:05] LABS: ANION GAP 8 mmol/L (8-16); CALCIUM, TOTAL 8.3 mg/dL (8.8-10.5); CARBON DIOXIDE 24 mmol/L (22-29); CHLORIDE 90 mmol/L (98-107); GLOMERULAR FILTR. RATE CALC > 60 mL/min (>60); GLUCOSE,RANDOM 106 mg/dL (70-110); POTASSIUM 3.8 mmol/L (3.5-5.1); UREA NITROGEN, BLOOD 10 mg/dL (7-18)
[2024-07-05 07:11] VITALS: BP 139/64; PULSE 78; RESP 18; TEMP 98.2; O2SAT 96
[2024-07-05 07:27] LABS: SODIUM SERUM 122 mmol/L (136-145)
[2024-07-05] MEDS: VANCOMYCIN 1GM/WATER(PEG/NADA) 200 ML IV SCH ×2 (08:46→20:43)
[2024-07-05] MEDS: SODIUM CHLORIDE 0.9% 1,000 ML IV SCH (08:47)
[2024-07-05 11:51] VITALS: BP 118/57; PULSE 72; RESP 18; TEMP 98.2; O2SAT 97
[2024-07-05] MEDS ORDERED: SODIUM CHLORIDE 3% 500 ML IV ONE (12:15)
[2024-07-05] MEDS: SODIUM CHLORIDE 3% 500 ML IV ONE (13:16)
[2024-07-05 15:50] VITALS: BP 157/88; PULSE 82; RESP 18; TEMP 98.3; O2SAT 98
[2024-07-05 20:39] VITALS: BP 135/60; PULSE 82; RESP 18; TEMP 98.6; O2SAT 97
[2024-07-06 00:13] VITALS: BP 126/56; PULSE 72; RESP 16; TEMP 97.8; O2SAT 95
[2024-07-06 04:55] VITALS: BP 126/60; PULSE 74; RESP 18; TEMP 98; O2SAT 96
[2024-07-06 07:19] VITALS: BP 131/61; PULSE 71; RESP 18; TEMP 97.4; O2SAT 95
[2024-07-06 07:19] LABS: B-TYPE NATRIURETIC PEPTIDE 46 pg/mL (0-100)
[2024-07-06 07:20] LABS: ANION GAP 7 mmol/L (8-16); CALCIUM, TOTAL 8.6 mg/dL (8.8-10.5); CARBON DIOXIDE 26 mmol/L (22-29); CHLORIDE 89 mmol/L (98-107); GLOMERULAR FILTR. RATE CALC > 60 mL/min (>60); GLUCOSE,RANDOM 109 mg/dL (70-110); POTASSIUM 3.9 mmol/L (3.5-5.1); UREA NITROGEN, BLOOD 11 mg/dL (7-18)
[2024-07-06 07:23] LABS: SODIUM SERUM 122 mmol/L (136-145)
[2024-07-06 09:24] LABS: BASOPHILS % (AUTO) 0.7 % (0.0-2.0); EOSINOPHILS % (AUTO) 7.8 % (1.0-6.0); HEMATOCRIT 31.4 % (41-53); HEMOGLOBIN 10.7 g/dL (13.5-17.5); LYMPHOCYTES # (AUTO) 0.9 K/uL (1.0-4.8); MEAN CORPUSCULAR HEMOGLOBIN 29.9 pg (26.0-34.0); MEAN CORPUSCULAR HGB CONC 34.2 G/dL (31.0-37.0); MEAN CORPUSCULAR VOLUME 87 fL (80-100); MONOCYTES # (AUTO) 1.1 K/uL (0.1-1.0); MONOCYTES % (AUTO) 16.2 % (2.0-9.0); NEUTROPHILS # (AUTO) 4.3 K/uL (1.8-7.7); NEUTROPHILS % (AUTO) 62.3 % (40.0-70.0); PLATELET COUNT (AUTO) 358 K/uL (150-450); RED BLOOD CELL COUNT(AUTO) 3.59 MIL/uL (4.50-5.90); RED CELL DISTRIBUTION WIDTH 13.8 % (11.5-14.5)
[2024-07-06 11:00] VITALS: BP 132/60; PULSE 79; RESP 18; TEMP 97.9; O2SAT 97
[2024-07-06] MEDS: SODIUM CHLORIDE 3% 150 ML IV ONE (11:31)
[2024-07-06] MEDS: MAGNESIUM HYDROXIDE SUSPENSION 30 ML UDCUP PO PRN (11:31)
[2024-07-06] MEDS: ASCORBIC ACID 500 MG TABLET PO SCH (14:31)
[2024-07-06 15:39] VITALS: BP 130/60; PULSE 66; RESP 18; TEMP 98.2; O2SAT 96
[2024-07-06 20:00] VITALS: BP 130/57; PULSE 73; RESP 16; TEMP 98.1; O2SAT 100
[2024-07-07 00:15] VITALS: BP 127/61; PULSE 76; RESP 16; TEMP 98.6; O2SAT 99
[2024-07-07] MEDS: HYDROCODONE/ACETAMINOPHEN 5-325 MG TABLET PO PRN (00:16)
[2024-07-07 04:00] VITALS: BP 116/54; PULSE 77; RESP 18; TEMP 98.5; O2SAT 99
[2024-07-07 07:24] LABS: ANION GAP 6 mmol/L (8-16); CALCIUM, TOTAL 7.9 mg/dL (8.8-10.5); CARBON DIOXIDE 24 mmol/L (22-29); CHLORIDE 93 mmol/L (98-107); CREATININE 0.53 mg/dL (0.60-1.30); GLOMERULAR FILTR. RATE CALC > 60 mL/min (>60); GLUCOSE,RANDOM 106 mg/dL (70-110); POTASSIUM 4.5 mmol/L (3.5-5.1); UREA NITROGEN, BLOOD 7 mg/dL (7-18); VANCOMYCIN,RANDOM 12.1 mcg/mL (25.0-50.0)
[2024-07-07 07:26] VITALS: BP 137/67; PULSE 72; RESP 18; TEMP 98; O2SAT 97
[2024-07-07 07:30] LABS: SODIUM SERUM 123 mmol/L (136-145)
[2024-07-07 11:28] VITALS: BP 122/48; PULSE 67; RESP 18; TEMP 98; O2SAT 98
[2024-07-07] MEDS: FUROSEMIDE 20 MG/2 ML VIAL IVP SCH (14:13)
[2024-07-07] MEDS: SODIUM CHLORIDE 3% 250 ML IV SCH (15:03)
[2024-07-07 17:28] VITALS: BP 116/50; PULSE 62; RESP 18; TEMP 97.9; O2SAT 97
[2024-07-07] MEDS: VANCOMYCIN 1.25 GM/WATER(PEG) 250 ML IV SCH (21:04)
[2024-07-08 00:07] VITALS: BP 143/65; PULSE 70; RESP 18; TEMP 97.8; O2SAT 100
[2024-07-08 05:13] VITALS: BP 147/69; PULSE 74; RESP 19; TEMP 98; O2SAT 100
[2024-07-08 07:55] LABS: B-TYPE NATRIURETIC PEPTIDE 96 pg/mL (0-100)
[2024-07-08 08:05] LABS: ANION GAP 7 mmol/L (8-16); CALCIUM, TOTAL 8.2 mg/dL (8.8-10.5); CARBON DIOXIDE 25 mmol/L (22-29); CHLORIDE 93 mmol/L (98-107); CREATININE 0.49 mg/dL (0.60-1.30); GLOMERULAR FILTR. RATE CALC > 60 mL/min (>60); GLUCOSE,RANDOM 94 mg/dL (70-110); POTASSIUM 3.9 mmol/L (3.5-5.1); SODIUM SERUM 125 mmol/L (136-145); UREA NITROGEN, BLOOD 7 mg/dL (7-18)
[2024-07-08 09:50] VITALS: BP 142/56; PULSE 78; RESP 18; TEMP 98; O2SAT 100
[2024-07-08] MEDS ORDERED: ASCO500 PO (12:08)
[2024-07-08] MEDS ORDERED: HYDR-4061 PO (12:08)
[2024-07-08 14:23] VITALS: BP 132/63; PULSE 71; RESP 18; TEMP 97.7; O2SAT 100
[2024-07-08 16:24] VITALS: BP 140/58; PULSE 73; RESP 18; TEMP 97.9; O2SAT 100
[2024-07-08 20:07] LABS: APPEARANCE,URINE CLEAR (CLEAR); BILIRUBIN,URINE NEGATIVE (NEGATIVE); COLOR,URINE LIGHT YELLOW (YELLOW); GLUCOSE, URINE (UA) NEGATIVE (NEGATIVE); KETONES,URINE NEGATIVE (NEGATIVE); LEUKOCYTE ESTERASE ,URINE NEGATIVE (NEGATIVE); NITRATE,URINE NEGATIVE (NEGATIVE); OCCULT BLOOD,URINE NEGATIVE (NEGATIVE); PH,URINE 6.5 (5.0-8.0); PROTEIN,URINE NEGATIVE (NEGATIVE); SPECIFIC GRAVITIY, URINE 1.013 (1.003-1.030); UROBILINOGEN,URINE <=1.0 mg/dL (<=1.0)
[2024-07-08 20:22] VITALS: BP 136/60; PULSE 80; RESP 19; TEMP 97.9; O2SAT 99
[2024-07-09 00:53] VITALS: BP 151/62; PULSE 78; RESP 18; TEMP 98.3; O2SAT 100
[2024-07-09 05:08] VITALS: BP 135/67; PULSE 68; RESP 19; TEMP 98; O2SAT 100
[2024-07-09 07:26] LABS: ALBUMIN 2.6 g/dL (3.4-5.0); ANION GAP 7 mmol/L (8-16); CALCIUM, TOTAL 8.2 mg/dL (8.8-10.5); CARBON DIOXIDE 24 mmol/L (22-29); CHLORIDE 92 mmol/L (98-107); GLOMERULAR FILTR. RATE CALC > 60 mL/min (>60); GLUCOSE,RANDOM 94 mg/dL (70-110); POTASSIUM 3.6 mmol/L (3.5-5.1); UREA NITROGEN, BLOOD 7 mg/dL (7-18)
[2024-07-09 07:29] LABS: SODIUM SERUM 123 mmol/L (136-145)
[2024-07-09 08:00] VITALS: BP 140/61; PULSE 78; RESP 18; TEMP 98.6; O2SAT 98
[2024-07-09 11:48] VITALS: BP 136/58; PULSE 72; RESP 18; TEMP 97.9; O2SAT 97
[2024-07-09 15:33] VITALS: BP 141/59; PULSE 68; RESP 18; TEMP 98.8; O2SAT 98
[2024-07-09 21:05] VITALS: BP 150/60; PULSE 75; RESP 18; TEMP 98.2; O2SAT 97
[2024-07-10 00:01] VITALS: BP 136/60; PULSE 75; RESP 18; TEMP 98.6; O2SAT 98
[2024-07-10 04:50] VITALS: BP 148/76; PULSE 66; RESP 18; TEMP 97.2; O2SAT 99
[2024-07-10 07:54] LABS: ANION GAP 7 mmol/L (8-16); CALCIUM, TOTAL 8.3 mg/dL (8.8-10.5); CARBON DIOXIDE 24 mmol/L (22-29); CHLORIDE 94 mmol/L (98-107); CREATININE 0.43 mg/dL (0.60-1.30); GLOMERULAR FILTR. RATE CALC > 60 mL/min (>60); GLUCOSE,RANDOM 97 mg/dL (70-110); POTASSIUM 3.6 mmol/L (3.5-5.1); SODIUM SERUM 125 mmol/L (136-145); UREA NITROGEN, BLOOD 6 mg/dL (7-18)
[2024-07-10 09:06] VITALS: BP 137/68; PULSE 77; RESP 19; TEMP 98.4; O2SAT 99
[2024-07-10 12:46] VITALS: BP 133/62; PULSE 66; RESP 18; TEMP 98.1; O2SAT 100
[2024-07-10 16:16] VITALS: BP 139/74; PULSE 70; RESP 19; TEMP 98.2; O2SAT 99
== END 2024-07-10 16:55 | DRG 602 ==
LOC: EMS 19:27 → EDH 07-01 05:22 → UNDOADMIN 07-01 05:25 → EDH 07-01 09:14 → 6S 07-01 09:14 → 5S 07-01 20:29 → 4E 07-03 12:44 → 5S 07-03 19:49
PROVIDERS: ADMIT Family Medicine; ATTEND Family Medicine
PROC: 4A12XFZ Monitoring of Cardiac Rhythm, External Approach (ICD-10-PCS; principal; 2024-07-07)
DX: L03.116 Cellulitis of left lower limb (principal); E43 Unspecified severe protein-calorie malnutrition; L97.929 Non-pressure chronic ulcer of unspecified part of left lower leg with unspecified severity; E87.1 Hypo-osmolality and hyponatremia; L97.919 Non-pressure chronic ulcer of unspecified part of right lower leg with unspecified severity; L03.115 Cellulitis of right lower limb; K21.9 Gastro-esophageal reflux disease without esophagitis; I73.9 Peripheral vascular disease, unspecified; E83.51 Hypocalcemia; D64.9 Anemia, unspecified; I11.9 Hypertensive heart disease without heart failure; R07.89 Other chest pain; B95.62 Methicillin resistant Staphylococcus aureus infection as the cause of diseases classified elsewhere; Z82.49 Family history of ischemic heart disease and other diseases of the circulatory system; Z68.28 Body mass index [BMI] 28.0-28.9, adult; E78.5 Hyperlipidemia, unspecified
CPT/HCPCS: 71045; 78452; 80048; 80053; 80061; 80076; 80202; 81003; 82040; 83605; 83735; 83880; 84132; 84145; 84484; 85025; 87040; 87070; 87186; 87205; 93005; 93306; 96365; 96375; 97116; 97163; 97165; 99285; A9500; J0696; J1650; J1940; J2270; J2785; J3475; J7030; J7040; 36415-L1; 36415-TC